=== PATIENT | male | born 1955 | race Caucasian/White ===

== ENCOUNTER 2018-06-24 13:38 | Emergency (ER) | payer BC, OTHER ==
[2018-06-24] MEDS ORDERED: SODIUM CHLORIDE 0.9% 1,000 ML IV ONE (13:42)
[2018-06-24] MEDS ORDERED: ceFAZolin IN SWFI 2 GM/20 ML SYRINGE IVP STA (13:43)
[2018-06-24] MEDS ORDERED: DIPH,PERTUS(ACELL)TETVAC-LF 0.5 ML VIAL IM ONE (13:43)
[2018-06-24] MEDS ORDERED: MORPHINE SULFATE 2 MG/ML SYRINGE IVP STA (13:43)
[2018-06-24] MEDS ORDERED: ONDANSETRON 4 MG/2 ML VIAL IVP STA (13:44)
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
[2018-06-24 13:53] VITALS: TEMP 97
[2018-06-24 14:00] LABS: Glucose,Whole Blood 106 mg/dL (75-99)
[2018-06-24 14:12] LABS: Basophils # (A) 0.1 k/uL (0-0.2); Basophils % (A) 0 %; Eosinophils # (A) 0.1 k/uL (0-0.7); Eosinophils % (A) 1 %; HCT 42.1 % (39.0-53.0); HGB 14.6 gm/dL (13.0-17.5); Lymphocytes # (A) 1.5 k/uL (1.0-4.8); Lymphocytes % (A) 14 %; MCH 31.3 pg (25.0-35.0); MCHC 34.7 g/dL (31.0-37.0); MCV 90.2 fL (80.0-100.0); Mean Platelet Volume 7.8; Monocytes # (A) 0.4 k/uL (0-1.0); Monocytes % (A) 3 %; Neutrophils # (A) 8.8 k/uL (1.3-7.7); Neutrophils % (A) 80 %; Platelet Count 178 k/uL (150-450); RBC 4.67 m/uL (4.30-5.90); RDW 13.5 % (11.5-15.5); WBC 10.9 k/uL (3.8-10.6)
[2018-06-24 14:23] LABS: Albumin 3.7 g/dL (3.5-5.0); Calcium 8.8 mg/dL (8.4-10.2); Magnesium 2.3 mg/dL (1.6-2.3); Potassium 3.8 mmol/L (3.5-5.1); Total Bilirubin 0.7 mg/dL (0.2-1.3)
--- NOTE | 2018-06-24 14:28 | XR ---
EXAMINATION TYPE: XR chest 2V DATE OF EXAM: 06/24/2018 COMPARISON: None INDICATION: Difficulty breathing TECHNIQUE: Frontal and lateral views of the chest are obtained. FINDINGS: The heart size is enlarged. The pulmonary vasculature is normal. The lungs are clear. A suspicious infiltrate is not identified. IMPRESSION: 1. Mild cardiomegaly.
--- NOTE | 2018-06-24 14:29 | XR ---
EXAMINATION TYPE: XR shoulder complete RT DATE OF EXAM: 06/24/2018 COMPARISON: NONE HISTORY: Pain TECHNIQUE: Shoulder examined in 3 FINDINGS: The humeral head articulates with the glenoid. The acromio-clavicular junction is normal. No acute fractures or dislocations are evident. A follow up study can be performed 7-10 days from acute trauma for continued pain. IMPRESSION: 1. Normal Shoulder
[2018-06-24 14:30] LABS: INR 1.1 (<1.2); Partial Thromboplastin Time 21.9 sec (22.0-30.0); Prothrombin Time 10.4 sec (9.0-12.0)
--- NOTE | 2018-06-24 14:30 | XR ---
EXAMINATION TYPE: XR wrist complete RT DATE OF EXAM: 06/24/2018 COMPARISON: None HISTORY: Pain TECHNIQUE: 4 view right wrist FINDINGS: There is a long oblique fracture extending from the lateral aspect of the metadiaphyseal ra dius to the radial ulnar junction. An additional fracture is along the lateral portion of the radius metaphysis extending into the intra-articular surface. Note is made of an ulnar styloid fracture. The re is some mild anterior angulation of the distal fracture fragment. Diffuse soft tissue swelling is present. IMPRESSION: 1. Comminuted fracture distal metaphyseal radius. Portion of this has intra-articular extension. 2. Ulnar styloid fracture.
--- NOTE | 2018-06-24 14:31 | XR ---
EXAMINATION TYPE: XR pelvis AP view DATE OF EXAM: 06/24/2018 COMPARISON: None HISTORY: Pain TECHNIQUE: AP pelvis FINDINGS: Femoral heads articulate with the acetabulum. Symphysis pubis and sacroiliac joints are int act. No acute fractures are evident. IMPRESSION: 1. Normal AP pelvis
[2018-06-24 14:44] LABS: Creatine Kinase 91 U/L (55-170)
[2018-06-24 14:57] LABS: Creatine Kinase MB 0.5 ng/mL (0.0-2.4); Troponin I <0.012 ng/mL (0.000-0.034)
[2018-06-24 16:01] VITALS: BP 146/79; PULSE 84; RESP 16
== END 2018-06-24 16:00 | disposition home or self-care (01) ==
LOC: EC 13:38
DX: S52.501A Unspecified fracture of the lower end of right radius, initial encounter for closed fracture (principal); S52.611A Displaced fracture of right ulna styloid process, initial encounter for closed fracture; S50.311A Abrasion of right elbow, initial encounter; S50.312A Abrasion of left elbow, initial encounter; S80.212A Abrasion, left knee, initial encounter; M25.511 Pain in right shoulder; Z23 Encounter for immunization; V28.4XXA Motorcycle driver injured in noncollision transport accident in traffic accident, initial encounter; Y93.55 Activity, bike riding; Y92.410 Unspecified street and highway as the place of occurrence of the external cause
CPT/HCPCS: 36415; 93005; 80053; 82550; 82553; 83735; 84484; 85025; 85610; 85730; 72170; 73030; 73110; 71046; 90715; 99284; 29125; 96374; 96375 ×2; 96361; 90471; J2405; J2270; J0690

== ENCOUNTER → 2020-05-28 | Outpatient (CLI) | payer MEDICARE, BC ==
--- NOTE | 2020-05-28 13:15 | ECHOS ---
STRESS ECHOCARDIOGRAM LUMASON: INDICATIONS: Shortness of breath, chest pain. MEDICATIONS: Atenolol, Cardura, Finasteride, Omeprazole. BASELINE HEART RATE: 59 BASELINE BLOOD PRESSURE: 166/63 MAXIMUM HEART RATE: 131 MAXIMUM BLOOD PRESSURE: 215/55 85% MPHR: 131 100% MPHR: 154 METS: 10.3 MAXIMUM STAGE REACHED: 3 TOTAL EXERCISE TIME: 9:00 CLINICAL INFORMATION: Baseline rhythm is sinus mechanism, rate of 59, right axis deviation, baseline blood pressure 166/63 mmHg. Patient exercised on Alhaji protocol for 9 minutes reaching peak rate 131 beats per minute which is equal to 85% maximum predicted heart rate. Peak blood pressure 215/55 mmHg. Test was terminated due to fatigue. There was no no chest pain. Electrocardiograph monitoring revealed a 1.[address]-segment depression in the inferolateral leads that resolved gradually in recovery. FINDINGS: Baseline echocardiogram revealed normal wall motion. At peak exercise, there was normal wall thickening and motion without any hypokinesis or dyskinesis. CONCLUSION: 1. Good exercise tolerance with a mildly positive electrocardiograph stress testing. 2. Normal stress echocardiogram with no evidence of stress induced ischemia. MMODL / IJN: [id number] /
== END | disposition home or self-care (01) ==
LOC: RADNMMAIN 09:52
PROVIDERS: ATTEND Internal Medicine Geriatric Medicine
DX: R07.9 Chest pain, unspecified (principal)
CPT/HCPCS: 93351

== ENCOUNTER → 2025-03-15 | Outpatient (CLI) | payer MEDICARE ==
--- NOTE | 2025-03-16 10:17 | MR ---
EXAMINATION TYPE: MR Prostate wo/w con DATE OF EXAM: 03/15/2025 COMPARISON: None. INDICATION: Elevated PSA PSA: 5.91 ng/ml in January 2025 Recent Biopsy and Date: None Pathology Report (If Applicable): n/a TECHNIQUE: Examination was performed using a 3T MRI without an endorectal coil. Multiparametric imaging was perf ormed with T2 mutliplanar sequences, axial diffusion weighted imaging and dynamic contrast enhanced i maging, utilizing 9 mL intravenous Gadobutrol gadolinium contrast. FINDINGS: PROSTATE VOLUME: 8.8 cm SI x 5.4 cm AP x 6.8 cm LR Vol= 169.2 cc PSA DENSITY: 0.03 ng/ml/cc Markedly enlarged prostate consistent with BPH is present. There is thin peripheral zone without susp icious area of marked diminished signal on ADC mapping. There is marked transitional zone hypertrophy with bilateral nodules. Deng catheter is in place. Left-sided asymmetry is noted. No suspicious are as of marked diminished signal in T2-weighted images or significant increased signal on diffusion-marshall ghted imaging. Some tiny cystic change proximal base is present. There is mildly distended bladder. There are at least moderate-sized fat-containing bilateral inguina l hernias. No destructive osseous lesions. IMPRESSION: Markedly enlarged prostate consistent with BPH. A focus of clinically significant cancer is not identified. Highest Assessment Category: 2 MRI Stage: T0 N0 M0 based on review of pelvic images. False negative rates for MRI range from 5-20% depending on risk profile. Assessment Categories: 1 ? Very low (clinically significant cancer is highly unlikely to be present) 2 ? Low (clinically significant cancer is unlikely to be present) 3 ? Intermediate (the presence of clinically significant cancer is equivocal) 4 ? High (clinically significant cancer is likely to be present) 5 ? Very high (clinically significant cancer is highly likely to be present) [facility], , 03/16/2025 10:14 AM
== END | disposition home or self-care (01) ==
LOC: RADMRIMAIN 06:53
PROVIDERS: ATTEND Urology
DX: N40.0 Benign prostatic hyperplasia without lower urinary tract symptoms (principal); R97.20 Elevated prostate specific antigen [PSA]
CPT/HCPCS: 72197; A9585